=== PATIENT | male | born 1950 | race African-American/Black ===

== ENCOUNTER → 2017-01-07 | Outpatient (CLI) | payer OTHER ==
[~2017-01-07] VITALS: Ht 170.2 cm; Wt 77.1 kg
[~2017-01-07] MED LIST: IBUPROFEN 200200 M1 PO; VITAMIN D50000 UNIT PO
--- NOTE | ~2017-01-07 | S ---
[facility] [address] [place] [address] SURGICAL PATH RPT PROCEDURE Name: HONORIO ALDANA Room #: REG JAMI Alvares#: [id number] Admission: 01/07/17 Date of : 50 Discharge: Report #: [id number] Path Case #: [id number] PATHOLOGY REPORT DRAFT COLLECTION DATE: 01/07/2017 RECEIVED DATE: 01/08/2017 SPECIMEN(S) RECEIVED: A.Cecal polyp B.60 cm polyp C.Polyp at 40 cm D.Rectal polyp
--- NOTE | ~2017-01-07 | P ---
[facility] [address] PROCEDURE REPORT Name: HONORIO ALDANA Room #: JOHN Alvares#: [id number] Admission: 01/07/17 Attend Phys: Yusuf Villatoro MD Discharge: Date of : 50 Report #: [id number] THIS REPORT FOR: //name// CC: [facility] physician/PCP Yusuf Worthy MD BRIEF HISTORY: The patient is a 66-year-old male who presents for his first average risk screening colonoscopy. PREOPERATIVE DIAGNOSIS: Average risk screening colonoscopy. POSTOPERATIVE DIAGNOSES: 1. Multiple diminutive polyps. 2. Diffusely dilated colon consistent with chronic constipation. MEDICATIONS: Deep sedation with propofol per anesthesia. SPECIMEN: 1. Diminutive cecal polyp. 2. Diminutive polyp at 60 cm. 3. Diminutive polyp at 40 cm. 4. Rectal polyp. ESTIMATED BLOOD LOSS: 3 mL. PROCEDURE: Colonoscopy to cecum and terminal ileum with biopsy and snare polypectomy. This is the patient's first colonoscopy. Withdrawal time from the cecum was 20 minutes. FINDINGS: Prior to propofol sedation, procedure of colonoscopy discussed with the patient as well as potential risks and its complications. He indicates he understands and desires to proceed. DESCRIPTION OF PROCEDURE: With the patient in left lateral decubitus position, digital examination was completed which revealed no abnormalities. Subsequently, the Desktime video colonoscope was introduced into the rectum, advanced under direct vision to the cecum. Done with minimal difficulty. The cecum was identified by the ileocecal valve and the appendiceal orifice. I was able to advance the scope into the distal segment of terminal ileum, which was inspected and noted to be unremarkable. At that point, the scope was slowly withdrawn and careful circumferential views obtained including retroflexing the scope in the ascending colon. Upon slow withdrawal of the scope, the prep was good. Mucosa was within normal limits, normal vascular pattern, normal light reflex. As we withdrew the scope, a diminutive polyp was seen and removed by [facility] [address] [place] [address] PROCEDURE REPORT Name: HONORIO ALDANA Room #: REG [facility].#: [id number] Admission: 01/07/17 Attend Phys: Yusuf Villatoro MD Discharge: Date of : 50 Report #: [id number] biopsy from the cecum. The scope was further withdrawn and diminutive polyps removed by biopsy at 60 and 40 cm. The scope was further withdrawn and no additional polypoid lesions rectum was reached and a 5 mm sessile polyp was seen at the edge of the anal verge. This was removed by cold snare polypectomy. Upon retroflexion, no additional lesions were seen. In addition, the patient had a diffusely dilated colon suggestive of chronic constipation. No obstructing lesions were seen. Scope was withdrawn. The patient tolerated the procedure well. CONDITION OF THE PATIENT UPON DISCHARGE: Following procedure, the patient drowsy, aroused, conversant and will be discharged home when fully ambulatory. INSTRUCTIONS TO THE PATIENT AND FAMILY AT THE TIME OF DISCHARGE: Three colon polyps and 1 rectal polyp were identified and removed as described above. We will follow up on the path and make surveillance recommendations. If 3 or more adenomas, he is to return in 3 years, if only 1 or 2 are adenomas, then 5 years would be indicated. If none are adenomas, then 10 years would be recommended. He will return to care of Dr. Nikolay Worthy and return to see me as needed. <ELECTRONICALLY SIGNED> By: Yusuf Villatoro MD 01/08/17 1523 [id number] Yusuf Villatoro MD /nt
== END | disposition home or self-care (01) ==
LOC: GI 06:50
DX: Z12.11 Encounter for screening for malignant neoplasm of colon (principal); D12.0 Benign neoplasm of cecum; D12.4 Benign neoplasm of descending colon; D12.5 Benign neoplasm of sigmoid colon; K62.1 Rectal polyp; K59.39 Other megacolon; M19.90 Unspecified osteoarthritis, unspecified site; Z87.891 Personal history of nicotine dependence; Z98.41 Cataract extraction status, right eye; Z98.890 Other specified postprocedural states
CPT/HCPCS: 62110